=== PATIENT | male | born 1935 | race Hispanic/Latino ===

== ENCOUNTER → 2018-11-12 | Outpatient (CLI) | payer MEDICARE ==
[~2018-11-12] MED LIST: AMIO200T PO; APIX2.5T PO; ATOR10 PO; CLIN150C10 PO; FERS325 PO; FURO40TA7 PO; INSU100I21 SQ; LOSA25TA41 PO; METO25TA3 PO; SPIR25TA PO; TAMS0.4C32 PO; TRAM50TA2 PO
== END | disposition home or self-care (01) ==
LOC: SHCH 12:18
PROVIDERS: ATTEND Internal Medicine Cardiovascular Disease
DX: I11.9 Hypertensive heart disease without heart failure (principal); I65.23 Occlusion and stenosis of bilateral carotid arteries; I65.01 Occlusion and stenosis of right vertebral artery; Z95.2 Presence of prosthetic heart valve
CPT/HCPCS: 93306; 93880

== ENCOUNTER 2021-04-05 06:02 | Day surgery (SDC) | payer OTHER ==
[2021-04-03 12:38] LABS: HEMATOCRIT 37.1 % (42-54); MEAN CORPUSCULAR HEMOGLOBIN 26.8 pg (27.0-33.0); MEAN CORPUSCULAR HGB CONC 30.7 g/dL (32.0-36.0); MEAN CORPUSCULAR VOLUME 87.3 fL (79-99); MONOCYTES % (AUTO) 8.8 % (3.0-13.0); NEUTROPHILS % (AUTO) 69.7 % (40.0-77.0); PLATELET COUNT (AUTO) 150 K/uL (130-400); RED BLOOD CELL COUNT(AUTO) 4.25 MIL/uL (4.50-6.20); RED CELL DISTRIBUTION WIDTH 16.5 % (11.0-15.5); WHITE BLOOD COUNT (AUTO) 8.3 K/uL (4.8-10.8)
[2021-04-03 12:51] LABS: CREATININE 1.4 mg/dL (0.5-1.5)
[2021-04-03 12:52] LABS: INR 1.05 (0.85-1.15); PROTHROMBIN TIME 11.4 SEC (9.6-11.6)
[2021-04-03 12:53] LABS: PARTIAL THROMBOPLASTIN TIME 31.2 SEC (26.3-35.5)
[2021-04-05] VITALS (9 sets, daily range): BP systolic 122–152; BP diastolic 55–73
[~2021-04-05] VITALS: Ht 172.7 cm; Wt 106.3 kg
[~2021-04-05 06:02] MED LIST changes: +0.9% NACL 500ML IV.SOLN 500 ML IV SCH; -AMIO200T PO; +ASPI-1443 PO; -ATOR10 PO; +ATOR20TA65 PO; +CEFAZOLIN SODIUM 1 GM VIAL IVP SCH; -CLIN150C10 PO; +FERR-82 PO; -FERS325 PO; +FURO20TA4 PO; -FURO40TA7 PO; +INSU100I13 SQ; -INSU100I21 SQ; +MULT-1367 PO; -SPIR25TA PO; +TAMS-1 PO; -TAMS0.4C32 PO; -TRAM50TA2 PO; +fish oil PO
[2021-04-05] MEDS ORDERED: 0.9%NACL 1000ML 1,000 ML IV ONE (07:12)
[2021-04-05] MEDS ORDERED: BUPIVACAINE/PF 0.25% 30ML VIAL IJ ONE (09:45)
[2021-04-05] MEDS ORDERED: MIDAZOLAM HCL 1 MG/ML 2ML VIAL ONE ×4 (09:45→11:31)
[2021-04-05] MEDS ORDERED: MEPERIDINE-PF 25 MG/ML SYG ONE ×4 (09:46→11:31)
[2021-04-05] MEDS ORDERED: LIDOCAINE HCL 1% MDV 50ML VIAL ONE (09:46)
[2021-04-05] MEDS ORDERED: IODIXANOL 320 MG/ML 100 ML VIAL ONE (10:25)
[2021-04-05] MEDS ORDERED: ACETAMINOPHEN 325 MG TAB PO PRN ×2 (13:00)
[2021-04-05] MEDS ORDERED: GLUCAGON 1MG KIT 1 MG ML IM PRN (13:00)
[2021-04-05] MEDS ORDERED: DEXTROSE 50%-WATER 50 ML DISP.SYRIN IV PRN (13:00)
[2021-04-05] MEDS ORDERED: CEFAZOLIN SODIUM 1 GM VIAL IVP SCH (16:00)
[2021-04-05] MEDS ORDERED: INSULIN HUMULIN R 100 UNIT/ML 3ML SQ SCH (16:30)
== END 2021-04-05 17:10 | disposition home or self-care (01) ==
LOC: DAH 06:02
PROVIDERS: ATTEND Internal Medicine Cardiovascular Disease
DX: I25.5 Ischemic cardiomyopathy (principal); I49.5 Sick sinus syndrome; I45.89 Other specified conduction disorders; I25.10 Atherosclerotic heart disease of native coronary artery without angina pectoris; I10 Essential (primary) hypertension; E78.5 Hyperlipidemia, unspecified; E11.9 Type 2 diabetes mellitus without complications; Z79.01 Long term (current) use of anticoagulants; Z79.82 Long term (current) use of aspirin; Z79.4 Long term (current) use of insulin; Z79.899 Other long term (current) drug therapy; Z86.718 Personal history of other venous thrombosis and embolism; Z95.810 Presence of automatic (implantable) cardiac defibrillator
CPT/HCPCS: 33225; 33249; 36415; 71045; 80048; 82948 ×2; 85025; 85610; 85730; 93005; A4215; A4216; A4221; A4222; A4223 ×3; A4606; A4663; C1769 ×5; C1882; C1895; C1896; C1900; J0690 ×2; J2175 ×3; J2250 ×3; J3490 ×2; J7030; Q9967; 99156; 99157

== ENCOUNTER → 2023-09-03 | Outpatient (CLI) | payer OTHER ==
[~2023-09-03] MED LIST changes: -0.9% NACL 500ML IV.SOLN 500 ML IV SCH; -CEFAZOLIN SODIUM 1 GM VIAL IVP SCH; -METO25TA3 PO
== END | disposition home or self-care (01) ==
LOC: SHCH 09:25
PROVIDERS: ATTEND Internal Medicine Cardiovascular Disease
DX: T82.857A Stenosis of other cardiac prosthetic devices, implants and grafts, initial encounter (principal); I11.0 Hypertensive heart disease with heart failure; I50.9 Heart failure, unspecified; E11.9 Type 2 diabetes mellitus without complications; E78.5 Hyperlipidemia, unspecified; Z95.3 Presence of xenogenic heart valve; Z95.0 Presence of cardiac pacemaker; Z95.1 Presence of aortocoronary bypass graft; Y92.89 Other specified places as the place of occurrence of the external cause
CPT/HCPCS: 93306